=== PATIENT | male | born 1935 | race Caucasian/White ===

== ENCOUNTER 2021-08-31 15:40 | Emergency (ER) | payer MEDICARE, MEDICAID ==
--- NOTE | 2021-08-31 17:06 | EDM.PDOC ---
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 Bleeding well controlled. No loss of function. Has lacerations distal half of both left 2nd and 3rd digits. Denies other injuries/acute complaints. 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) Social & Family History - Tobacco Use Tobacco Use Status *Q: Former Tobacco User - Alcohol Use Alcohol Use History: Yes Alcohol Use in Last Twelve Months: Yes Alcohol Use Frequency: Daily (1 whiskey a day) - Recreational Drug Use Recreational Drug Use: No Drug Use in Last 12 Months: No ED ROS GENERAL - Review of Systems Review Of Systems: See Below Musculoskeletal: Reports: Other (laceration 2nd and 3rd left fingers) Skin: Reports: Other (lacerations as noted above) Neurological: Denies: Numbness, Paresthesia Free Text/Narrative/Comment: ROS otherwise unremarkable for acute changes ED EXAM, SKIN/RASH Exam: See Below Exam Limited By: No Limitations General Appearance: Alert, WD/WN, No Apparent Distress Eye Exam: Bilateral Eye: EOMI, PERRL Ears: Hearing Loss Nose: No: Nasal Deformity, Nasal Swelling, Nasal Drainage Throat/Mouth: Normal Lips, Normal Voice, No Airway Compromise Head: Normocephalic, Sinus Tenderness Neck: Supple Respiratory/Chest: No Respiratory Distress Cardiovascular: Normal Peripheral Pulses Extremities: Normal Range of Motion. No: Increased Warmth, Mottled, Pallor, Redness Neurological: Alert, Oriented, No Motor/Sensory Deficits Psychiatric: Normal Affect, Normal Mood Location, Skin: Other (lacerations noted involving both second and third digits left hand.) ED SKIN PROCEDURES - Laceration/Wound Repair Left Digit - 2nd (Index) Appearance: Subcutaneous, Irregular, Clean Distal NVT: Neuro & Vascular Intact, No Tendon Injury Anesthetic Type: Local Local Anesthesia - Lidocaine (Xylocaine): 1% Plain Local Anesthetic Volume: 2cc Skin Prep: Providone-Iodine (Betadine) Exploration/Debridement/Repair: Wound Explored, In a Bloodless Field, Explored to Base, No Foreign Material Found Closed with: Sutures Lac/Wound length In cm: 1.0 Suture Size: 4-0 # of Sutures: 1 Suture Type: Nylon, Interrupted Drain Placement: No Sterile Dressing Applied: Nurse Tetanus Status Addressed: Yes Left Digit - 3rd (Middle) Appearance: Subcutaneous, Irregular, Clean Distal NVT: Neuro & Vascular Intact, No Tendon Injury Anesthetic Type: Local Local Anesthetic Volume: 3cc Skin Prep: Providone-Iodine (Betadine) Exploration/Debridement/Repair: Wound Explored, In a Bloodless Field, Explored to Base, No Foreign Material Found Closed with: Sutures Lac/Wound length In cm: 3 Suture Size: 4-0 # of Sutures: 6 Suture Type: Nylon, Interrupted Drain Placement: No Sterile Dressing Applied: Nurse Tetanus Status Addressed: Yes Complications: No Course - Orders/Labs/Meds Orders: Active Orders 24 hr Category Date Time Status Fingers Second Digit Lt F1 [CR] Stat Exams 08/31/21 15:50 Ordered Fingers Third Digit Lt F2 [CR] Stat Exams 08/31/21 15:50 Ordered - Re-Assessments/Exams Free Text/Narrative Re-Assessment/Exam: 08/31/21 17:12 Xray showed no obvious bony injury. Lacerations cleansed and repaired. Tetanus UTD. Wound care reviewed with patient. Sutures out in 10 days. Follow up PRN signs infection/any concerns. Departure - Departure Time of Disposition: 17:06 Disposition: Home, Self-Care 01 Condition: Good Clinical Impression: Laceration of left index finger Qualifiers: Encounter type: initial encounter Damage to nail status: without damage Foreign body presence: without foreign body Qualified Code(s): S61.211A - Laceration without foreign body of left index finger without damage to nail, initial encounter Laceration of left middle finger Qualifiers: Encounter type: initial encounter Damage to nail status: without damage Foreign body presence: without foreign body Qualified Code(s): S61.213A - Laceration without foreign body of left middle finger without damage to nail, initial encounter - Discharge Information *PRESCRIPTION DRUG MONITORING PROGRAM REVIEWED*: Not Applicable *COPY OF PRESCRIPTION DRUG MONITORING REPORT IN PATIENT ALINA: Not Applicable Instructions: Sutures, Miguelangel, or Adhesive Wound Closure, [id number] Referrals: Kellie Davidson PA [Primary Care Provider] - Additional Instructions: Sutures out FridaySep 10. Keep healing wounds clean. Apply antibiotic ointment several times a day. Keep covered when you are in the shop. Follow up as needed PRN signs infection. - My Orders Last 24 Hours: My Active Orders 08/31/21 15:50 Fingers Second Digit Lt F1 [CR] Stat Fingers Third Digit Lt F2 [CR] Stat - Assessment/Plan Last 24 Hours: My Active Orders 08/31/21 15:50 Fingers Second Digit Lt F1 [CR] Stat Fingers Third Digit Lt F2 [CR] Stat
[2021-08-31] MEDS ORDERED: Bacitracin/Neomycin/Polymyxin B Oint 0.9 GM U/D Packet ONE (17:17)
[2021-08-31] MEDS ORDERED: Bacitracin/Neomycin/Polymyxin B Oint 0.9 GM U/D Packet TOP ONE (17:27)
== END 2021-08-31 17:30 | disposition home or self-care (01) ==
LOC: LL.ED 15:40
DX: S61.211A Laceration without foreign body of left index finger without damage to nail, initial encounter (principal); S61.213A Laceration without foreign body of left middle finger without damage to nail, initial encounter; I25.10 Atherosclerotic heart disease of native coronary artery without angina pectoris; I50.9 Heart failure, unspecified; Z87.891 Personal history of nicotine dependence; Z88.7 Allergy status to serum and vaccine; W27.0XXA Contact with workbench tool, initial encounter; Y92.513 Shop (commercial) as the place of occurrence of the external cause; Y99.0 Civilian activity done for income or pay
CPT/HCPCS: 12002; 73140-F1; 99283-25

== ENCOUNTER 2022-06-25 23:28 | Inpatient (IN) | payer OTHER, MEDICARE, MEDICAID ==
[2022-06-25] MEDS: Sodium Chloride 0.9% 1,000 ML IV SCH (23:50)
[2022-06-26 00:53] LABS: ANION GAP 12.7 meq/L (7-15)
[2022-06-26] MEDS ORDERED: cefTRIAXone 2 GM Vial IVPUSH ONE (02:31)
[2022-06-26] MEDS ORDERED: Ondansetron 4 MG/2 ML SDV IVPUSH PRN (04:18)
[2022-06-26] MEDS ORDERED: Acetaminophen 325 MG Tab PO PRN (04:18)
[2022-06-26] MEDS ORDERED: Ondansetron 4 MG Tab.DIS PO PRN (04:18)
[2022-06-26 08:05] LABS: ANION GAP 5.7 meq/L (7-15)
[2022-06-26] MEDS: Sodium Chloride 0.9% 1,000 ML IV SCH (10:27)
[2022-06-26 12:25] VITALS: BP 132/62; PULSE 85
== END 2022-06-26 13:25 | DRG 872 ==
LOC: LL.ED 23:28 → LL.MS 06-26 03:20 → OBSVTOIN 06-26 11:06
PROVIDERS: ADMIT Physician Assistant Medical; ATTEND Physician Assistant Medical
DX: K81.9 Cholecystitis, unspecified (principal); A41.9 Sepsis, unspecified organism; C91.10 Chronic lymphocytic leukemia of B-cell type not having achieved remission; N17.9 Acute kidney failure, unspecified; E78.00 Pure hypercholesterolemia, unspecified; I38 Endocarditis, valve unspecified; I42.9 Cardiomyopathy, unspecified; Z86.718 Personal history of other venous thrombosis and embolism; Z87.11 Personal history of peptic ulcer disease; N18.9 Chronic kidney disease, unspecified; K81.0 Acute cholecystitis; E87.2 Acidosis; I13.0 Hypertensive heart and chronic kidney disease with heart failure and stage 1 through stage 4 chronic kidney disease, or unspecified chronic kidney disease; N18.30 Chronic kidney disease, stage 3 unspecified; E78.2 Mixed hyperlipidemia; R65.20 Severe sepsis without septic shock; I48.0 Paroxysmal atrial fibrillation; Z20.822 Contact with and (suspected) exposure to COVID-19; I25.10 Atherosclerotic heart disease of native coronary artery without angina pectoris; I50.9 Heart failure, unspecified; G30.9 Alzheimer's disease, unspecified; F02.80 Dementia in other diseases classified elsewhere, unspecified severity, without behavioral disturbance, psychotic disturbance, mood disturbance, and anxiety; Z79.01 Long term (current) use of anticoagulants; Z79.1 Long term (current) use of non-steroidal anti-inflammatories (NSAID); Z79.899 Other long term (current) drug therapy; Z88.8 Allergy status to other drugs, medicaments and biological substances; Z98.42 Cataract extraction status, left eye; Z98.41 Cataract extraction status, right eye; Z95.810 Presence of automatic (implantable) cardiac defibrillator
CPT/HCPCS: 36415; 74019; 74176; 80048; 80053; 80076; 81001; 82150; 83605; 83690; 85025; 86140; 87040; 96361; 96374; 99236; 99285-25; A9270-GY; J0696; J7030; U0002

== ENCOUNTER → 2023-01-11 05:30 | Emergency (ER) | payer OTHER, MEDICARE, MEDICAID | END | disposition EXP | LOC: LL.ED 05:30 | DX: I46.9 Cardiac arrest, cause unspecified (principal); I50.9 Heart failure, unspecified; E78.00 Pure hypercholesterolemia, unspecified; I25.10 Atherosclerotic heart disease of native coronary artery without angina pectoris; N18.9 Chronic kidney disease, unspecified; Z88.7 Allergy status to serum and vaccine; Z79.01 Long term (current) use of anticoagulants; Z79.899 Other long term (current) drug therapy | CPT/HCPCS: 92950; 99285-25 ==